=== PATIENT | male | born 1995 | race Asian ===

== ENCOUNTER 2019-04-18 20:04 | Emergency (ER) | payer BC ==
[~2019-04-18] VITALS: Ht 170.2 cm; Wt 54.0 kg
[2019-04-18 20:13] VITALS: Ht 170.2 cm; Wt 54.0 kg
[2019-04-18 20:34] LABS: BASOPHIL % 0.3 % (0-2); PLATELET COUNT 163 x10^3mcL (130-400); RED CELL DISTRIBUTION WIDTH 12.7 % (11.5-14.5)
[2019-04-18 20:44] LABS: CALCIUM 9.3 mg/dL (8.5-10.1); CARBON DIOXIDE 33.9 mmol/L (21-32); CHLORIDE SERUM 104 mmol/L (98-107); CREATININE SERUM 1.2 mg/dL (0.7-1.3); GFR1 > 60 mL/min; GLUCOSE SERUM 92 mg/dL (74-106); POTASSIUM SERUM 3.7 mmol/L (3.5-5.1); SODIUM SERUM 141 mmol/L (136-145)
[2019-04-18 20:48] LABS: ALBUMIN 4.5 g/dL (3.4-5.0); ALKALINE PHOSPHATASE 88 U/L (46-116); ALT/SGPT 24 U/L (16-63); AST/SGOT 10 U/L (15-37); LIPASE 164 IU/L (73-393); TOTAL PROTEIN, SERUM 7.6 g/dL (6.4-8.2)
[2019-04-18 23:46] VITALS: BP 112/68
== END 2019-04-18 23:46 | disposition home or self-care (01) ==
LOC: ED 20:04
DX: R10.11 Right upper quadrant pain (principal); R11.2 Nausea with vomiting, unspecified
CPT/HCPCS: 36415; J1885

== ENCOUNTER 2020-02-27 06:36 | Emergency (ER) | payer BC ==
[~2020-02-27] VITALS: Ht 180.3 cm; Wt 64.4 kg
[2020-02-27 06:45] VITALS: Ht 180.3 cm; Wt 64.4 kg
[2020-02-27 08:22] LABS: BASOPHIL % 0.4 % (0-2); PLATELET COUNT 143 x10^3mcL (130-400)
[2020-02-27 08:33] LABS: CALCIUM 8.5 mg/dL (8.5-10.1); CARBON DIOXIDE 28.5 mmol/L (21-32); CHLORIDE SERUM 102 mmol/L (98-107); GFR1 > 60 mL/min; GLUCOSE SERUM 87 mg/dL (74-106); POTASSIUM SERUM 3.6 mmol/L (3.5-5.1); SODIUM SERUM 138 mmol/L (136-145)
[2020-02-27 08:38] LABS: ALBUMIN 4.1 g/dL (3.4-5.0); ALKALINE PHOSPHATASE 67 U/L (46-116); ALT/SGPT 21 U/L (16-63); AMYLASE 88 U/L (25-115); AST/SGOT 14 U/L (15-37); BILIRUBIN TOTAL 0.3 mg/dL (0.20-1.00); LIPASE 169 IU/L (73-393); TOTAL PROTEIN, SERUM 6.6 g/dL (6.4-8.2)
[2020-02-27 09:48] VITALS: BP 101/70
== END 2020-02-27 09:48 | disposition home or self-care (01) ==
LOC: ED 06:36
PROVIDERS: Specialist
DX: R10.11 Right upper quadrant pain (principal)
CPT/HCPCS: J1885; Q0092